=== PATIENT | male | born 2005 | race Caucasian/White ===

== ENCOUNTER 2024-01-22 13:48 | Observation (INO) | payer BC, OTHER ==
--- NOTE | 2024-01-22 14:07 | ED ---
General Adult HPI - General Chief complaint: Urogenital Stated complaint: testicular torsion Time Seen by Provider: 01/22/24 13:58 Source: patient, RN notes reviewed, old records reviewed Mode of arrival: ambulatory Limitations: no limitations - History of Present Illness Initial comments: 18-year-old male with pain to the right testicle and the right side of his scrotum. Patient states the pain has been present for 3 to 4 days. He was seen at urgent care and sent to the emergency department for evaluation and concern for testicular torsion. Patient has an undescended left testicle from . He denies dysuria or hematuria. States the pain is worse with standing. - Related Data Allergies Allergy/AdvReac Type Severity Reaction Status Date / Time No Known Allergies Allergy Verified 01/22/24 13:56 Review of Systems ROS Statement: Those systems with pertinent positive or pertinent negative responses have been documented in the HPI. ROS Other: All systems not noted in ROS Statement are negative. Past Medical History Past Medical History: No Reported History Past Surgical History: No Surgical Hx Reported Smoking Status: Never smoker Past Alcohol Use History: None Reported Past Drug Use History: None Reported General Exam Limitations: no limitations General appearance: alert, in no apparent distress Head exam: Present: atraumatic, normocephalic Eye exam: Present: normal appearance, PERRL ENT exam: Present: normal exam Neck exam: Present: normal inspection. Absent: tenderness Respiratory exam: Present: normal lung sounds bilaterally. Absent: respiratory distress Cardiovascular Exam: Present: regular rate, normal rhythm GI/Abdominal exam: Present: soft. Absent: distended, tenderness exam: Present: testicular tenderness (Right), vertical testicular lie, other (Left hemiscrotum: Absent left testicle. Cremasteric reflex on the right, high riding testicle on the right). Absent: scrotal swelling Neurological exam: Present: alert Psychiatric exam: Present: normal affect, normal mood Skin exam: Present: warm, dry, intact. Absent: cyanosis, diaphoretic Course Vital Signs 01/22/24 13:56 Temperature 98.6 F Pulse Rate 82 Respiratory 18 Rate Blood Pressure 126/74 O2 Sat by Pulse 99 Oximetry - Reevaluation(s) Reevaluation #1: 01/22/24 15:05 Case discussed with urology Dr. Salas at the time I evaluated the ultrasound. Medical Decision Making - Medical Decision Making Was pt. sent in by a medical professional or institution (MANISHA Mead, WELCOME DESK AGENT, urgent care, hospital, or residential...) When possible be specific @ -No Did you speak to anyone other than the patient for history (EMS, parent, family, police, friend...)? What history was obtained from this source @ -No Did you review nursing and triage notes (agree or disagree)? Why? @ -I reviewed and agree with nursing and triage notes Were old charts reviewed (outside hosp., previous admission, EMS record, old EKG, old radiological studies, urgent care reports/EKG's, residential records)? Report findings @ -No old charts were reviewed Differential Diagnosis: Testicular torsion, epididymitis, orchitis EKG interpreted by me (3pts min.). @ -As above X-rays interpreted by me (1pt min.). @ -None done CT interpreted by me (1pt min.). @ -None done U/S interpreted by me (1pt. min.). @ -Ultrasound shows a heterogeneous appearance to the right testicle and absent vascularity within the right testicle. What testing was considered but not performed or refused? (CT, X-rays, U/S, labs)? Why? @ -None What meds were considered but not given or refused? Why? @ -None Did you discuss the management of the patient with other professionals (professionals i.e. MANISHA Mead, WELCOME DESK AGENT, lab, RT, psych nurse, delinquency prevention social worker, jacquard plate maker, teacher, founder and chief executive officer, case mgr)? Give summary @Case discussed with Dr. Salas who is on his way to the emergency department. Was smoking cessation discussed for >3mins.? @ -No Was critical care preformed (if so, how long)? @Yes, 35 minutes Were there social determinants of health that impacted care today? How? (Homelessness, low income, unemployed, alcoholism, drug addiction, transportation, low edu. Level, literacy, decrease access to med. care, shelter, rehab)? @ -No Was there de-escalation of care discussed even if they declined (Discuss DNR or withdrawal of care, Hospice)? DNR status @ -No What co-morbidities impacted this encounter? (DM, HTN, Smoking, COPD, CAD, Ca ncer, CVA, ARF, Chemo, Hep., AIDS, mental health diagnosis, sleep apnea, morbid obesity)? @ -None Was patient admitted / discharged? Hospital course, mention meds given and route, prescriptions, significant lab abnormalities, going to OR and other pertinent info. @ -[18 yo-year-old male with 3 or 4 days of right testicle pain. Patient has a high riding right testicle with absent cremasteric reflex. Ultrasound is ordered immediately with concern for testicular torsion. Upon review of the images there is absent flow in the right testicle, urology is consulted immediately and on his way to the emergency department. Preop laboratory studies ordered results pending. Undiagnosed new problem with uncertain prognosis? @ -No Drug Therapy requiring intensive monitoring for toxicity (Heparin, Nitro, Insulin, Cardizem)? @ -No Were any procedures done? @ -No Diagnosis/symptom? @Testicular torsion Acute, or Chronic, or Acute on Chronic? @ -acute Uncomplicated (without systemic symptoms) or Complicated (systemic symptoms)? @ -complicated Side effects of treatment? @ -No Exacerbation, Progression, or Severe Exacerbation? @ -No Poses a threat to life or bodily function? How? (Chest pain, [place], [place], pneumonia, PE, COPD, DKA, ARF, appy, cholecystitis, CVA, Diverticulitis, Homicidal, Suicidal, threat to staff... and all critical care pts) @ -[Yes, high risk of testicular loss - Lab Data Lab Results 01/22/24 Range/Units 14:24 Urine Color Yellow Urine Appearance Clear (Clear) Urine pH 5.5 (5.0-8.0) Ur Specific Vader 1.022 (1.001-1.035) Urine Protein Negative (Negative) Urine Glucose (UA) Negative (Negative) Urine Ketones Negative (Negative) Urine Blood Trace H (Negative) Urine Nitrite Negative (Negative) Urine Bilirubin Negative (Negative) Urine Urobilinogen <2.0 (<2.0) mg/dL Ur Leukocyte Esterase Negative (Negative) Urine RBC <1 (0-5) /hpf Urine WBC <1 (0-5) /hpf Urine Mucus Occasional H (None) /hpf Critical Care Time Critical Care Time: Yes Total Critical Care Time: 35 Disposition Clinical Impression: Torsion of testis Disposition: ADMITTED IP TO THIS HOSP Condition: Serious Is patient prescribed a controlled substance at d/c from ED?: No Referrals: Jose Eduardo Pinzon MD [Primary Care Provider] - 1-2 days Time of Disposition: 15:10
[2024-01-22 14:36] LABS: Appearance,Urine Clear (Clear); Bilirubin,Urine Negative (Negative); Blood,Urine Trace (Negative); Color,Urine Yellow; Glucose,Urine (UA) Negative (Negative); Ketones,Urine Negative (Negative); Leukocyte Esterase,Urine Negative (Negative); Mucus,Urine Occasional /hpf; Nitrite,Urine Negative (Negative); PH, Urine 5.5 (5.0-8.0); Protein,Urine Negative (Negative); RBC,Urine <1 /hpf (0-5); Specific Gravity,Urine 1.022 (1.001-1.035); Urobilinogen,Urine <2.0 mg/dL (<2.0); WBC,Urine <1 /hpf (0-5)
--- NOTE | 2024-01-22 15:10 | US ---
EXAMINATION TYPE: US scrotum with doppler. DATE OF EXAM: 01/22/2024 COMPARISON: NONE CLINICAL INDICATION: Male, 18 years old with history of pain; Pain x 3 days patient says only has one testicle. TECHNIQUE: Grayscale, color Doppler and spectral Doppler imaging of the scrotum. FINDINGS: EXAM MEASUREMENTS: TESTICLES: Right Testicle: 4.4 x 3.3 x 3.4 cm Left Testicle: absent. EPIDIDYMIS HEAD: Right Epididymis: Not visualized. Left Epididymis: absent Presence of hydroceles: no Presence of varicoceles: no Right testicle is heterogenous no blood flow seen within only around the periphery. No left testicle visualized. IMPRESSION: 1. Heterogenous right testicle. No blood flow identified. Correlate for torsion. Report was called to emergency room physician by Dr. Delgado by telephone at the time of interpretation. [facility], Workstation: [facility], 01/22/2024 3:08 PM
[2024-01-22] MEDS ORDERED: NALOXONE 0.4 MG/ML 1 ML VIAL IV PRN (15:16)
[2024-01-22] MEDS ORDERED: HYDROmorphone 0.5 MG/0.5 ML SYRINGE IVP PRN (15:16)
[2024-01-22] MEDS: SODIUM CHLORIDE 0.9% 1,000 ML IV SCH (15:33)
[2024-01-22 15:41] LABS: Basophils % (A) 0 %; Eosinophils # (A) 0.1 k/uL (0-0.7); Eosinophils % (A) 1 %; HGB 17.6 gm/dL (13.0-17.5); Lymphocytes # (A) 1.5 k/uL (1.0-4.8); Lymphocytes % (A) 11 %; MCH 28.2 pg (25.0-35.0); MCHC 32.7 g/dL (31.0-37.0); MCV 86.4 fL (80.0-100.0); Mean Platelet Volume 7.6; Monocytes # (A) 0.7 k/uL (0-1.0); Monocytes % (A) 5 %; Neutrophils # (A) 11.4 k/uL (1.3-7.7); Neutrophils % (A) 82 %; Platelet Count 316 k/uL (150-450); RBC 6.25 m/uL (4.30-5.90); RDW 12.3 % (11.5-15.5); WBC 13.9 k/uL (4.0-11.0)
[2024-01-22 15:52] LABS: Partial Thromboplastin Time 28.4 sec (22.0-30.0)
[2024-01-22 15:53] LABS: ALT 28 U/L (4-49); African American GFR (CKD) >90 (>60 ml/min/1.73 sqM); Anion Gap 10 mmol/L; Blood Urea Nitrogen 10 mg/dL (9-20); Calcium 9.5 mg/dL (8.4-10.2); Carbon Dioxide 24 mmol/L (22-30); Chloride 105 mmol/L (98-107); Glucose 95 mg/dL (74-99); Non-African American GFR(CKD) >90 (>60 ml/min/1.73 sqM); Sodium 139 mmol/L (137-145); Total Bilirubin 1.8 mg/dL (0.2-1.3)
[2024-01-22] MEDS: SODIUM CHLORIDE 0.9% 1,000 ML IV ONE (16:11)
[2024-01-22] MEDS ORDERED: MIDAZOLAM 2 MG/2 ML VIAL ONE (16:11)
[2024-01-22] MEDS ORDERED: SUCCINYLCHOLINE CHLORIDE 200 MG/10 ML VIAL IV ONE (16:11)
[2024-01-22] MEDS ORDERED: PROPOFOL 10 MG/ML 20 ML VIAL IV ONE (16:11)
[2024-01-22] MEDS ORDERED: HYDROmorphone (PF) 1 MG/ML ONE (16:11)
[2024-01-22] MEDS ORDERED: LIDOCAINE 1% INJ 10MG/ML (20 ML MDV) ONE (16:11)
[2024-01-22] MEDS ORDERED: NEOSTIGMINE 1 MG/ML 10 ML VIAL ONE (16:11)
[2024-01-22] MEDS ORDERED: fentaNYL (PF) 50 MCG/ML 2 ML AMP ONE (16:11)
[2024-01-22] MEDS ORDERED: GLYCOPYRROLATE 0.2 MG/ML 2 ML VIAL ONE (16:11)
[2024-01-22] MEDS ORDERED: ONDANSETRON 4 MG/2 ML VIAL ONE (16:11)
--- NOTE | 2024-01-22 16:11 | P.GSHP ---
History of Present Illness H&P Date: 01/22/24 Chief Complaint: Right testicular pain The patient is a 18-year-old white male who has experienced right testicular pain since January 19, 2024. The pain has varied in severity but worsened today. He presented to the ER and underwent ultrasound, revealing a heterogenous right testicle without blood flow. The patient has a solitary right testicle due to cryptorchidism, for which he states he has never undergone evaluation. - Constitutional Constitutional: Denies chills, Denies fever - Genitourinary (Male) Genitourinary: Denies dysuria, Denies hematuria Past Medical History Past Medical History: No Reported History Past Surgical History: No Surgical Hx Reported Smoking Status: Never smoker Past Alcohol Use History: None Reported Past Drug Use History: None Reported Medications and Allergies Home Medications Medication Instructions Recorded Confirmed Type No Known Home Medications 01/22/24 01/22/24 History Allergies Allergy/AdvReac Type Severity Reaction Status Date / Time No Known Allergies Allergy Verified 01/22/24 15:24 Surgical - Exam Vital Signs Temp Pulse Resp BP Pulse Ox 98.6 F 82 18 126/74 99 01/22/24 13:56 01/22/24 13:56 01/22/24 13:56 01/22/24 13:56 01/22/24 13:56 - General well developed, well nourished, moderate distress - Respiratory normal respiratory effort - Abdomen Abdomen: soft, non tender, no guarding, no rigid, no rebound - Genitourinary Normal phallus, normal urethral meatus. The left testicle cannot be palpated. There are no spermatic cord structures at the left scrotal neck. The right testicle is indurated and tender to palpation. - Psychiatric oriented to time, oriented to person, oriented to place, speech is normal, memory intact Results - Labs 01/22/24 15:27 Abnormal Lab Results - Last 24 Hours (Table) 01/22/24 01/22/24 Range/Units 14:24 15:27 WBC 13.9 H (4.0-11.0) k/uL RBC 6.25 H (4.30-5.90) m/uL Hgb 17.6 H (13.0-17.5) gm/dL Hct 54.0 H (39.0-53.0) % Neutrophils # 11.4 H (1.3-7.7) k/uL Urine Blood Trace H (Negative) Urine Mucus Occasional H (None) /hpf Assessment and Plan (1) Torsion of testis Current Visit: Yes Status: Acute Code(s): N44.00 - TORSION OF TESTIS, UNSPECIFIED SNOMED Code(s): 94785327 Plan: Right scrotal exploration. I had a lengthy discussion with the patient and his mother regarding his condition. Unfortunately, it is anticipated that the testicle will be necrotic and that an orchiectomy will be performed. However, if testicular torsion is confirmed, detorsion will be performed and the testicle will be reevaluated. If it appears viable, and orchiopexy will be performed. The rationale for this approach has been discussed in detail with the patient and his mother. I also reviewed with them potential risks, which include anesthesia, bleeding, and infection.
[2024-01-22 16:24] LABS: AST 36 U/L (17-59); Albumin 4.9 g/dL (3.5-5.0); Alkaline Phosphatase 84 U/L (38-126); Potassium 5.2 mmol/L (3.5-5.1); Total Protein 7.8 g/dL (6.3-8.2)
[2024-01-22] MEDS: BUPIVACAINE (PF) 0.25% 30 ML VIAL SQ ONE (16:52)
--- NOTE | 2024-01-22 17:12 | P.OP ---
Date of Procedure: 01/22/24 Preoperative Diagnosis: Right testicular torsion Postoperative Diagnosis: Same Procedure(s) Performed: Right scrotal exploration, right orchiectomy Anesthesia: OLIVIAA Surgeon: Mook Salas Estimated Blood Loss (ml): 10 IV fluids (ml): 500 Pathology: other (Right testicle) Condition: stable Disposition: PACU Indications for Procedure: The patient is a 18-year-old white male who has experienced right testicular pain since January 19, 2024. The pain has varied in severity but worsened today. He presented to the ER and underwent ultrasound, revealing a heterogenous right testicle without blood flow. The patient has a solitary right testicle due to cryptorchidism, for which he states he has never undergone evaluation. Findings are consistent with testicular torsion, and he has been advised to undergo surgical exploration. Operative Findings: Necrotic right testicle, 360 degree torsion. Description of Procedure: The patient was taken to the operating room and placed in the supine position. Examination under anesthesia was performed, and the left testicle was palpable in the upper left inguinal canal. The external genitalia was prepped and draped sterilely. The scalpel was used to make a transverse right anterior scrotal incision. The dartos fascia was noted to be edematous. The Bovie electrocautery was used to incise the dartos fascia, down to the tunica vaginalis. The tunica vaginalis was opened, and the right testicle was noted to be necrotic. The testicle was torsed 360 degrees. Detorsion was performed, but the testicle was not viable. Therefore, 2-0 Vicryl suture was used to suture ligate the right spermatic cord. The cord was then ligated a second time using the Vicryl suture, prior to dividing the cord and removing the testicle. The right hemiscrotum was inflamed, and thus there were multiple areas of oozing which were controlled with electrocautery. Once hemostasis was attained, the dartos fascia was closed using 3-0 Vicryl suture in a running fashion. The skin was closed using 3-0 chromic suture in a running fashion. 0.25% bupivacaine was injected subcutaneously within the superior aspect of the incision. Dermabond was applied over the incision. All sponge and needle counts were correct. The patient tolerated the procedure well was taken to the recovery in stable condition.
[2024-01-22] MEDS: KETOROLAC 15 MG/ML 1 ML VIAL IVP STA (17:38)
[2024-01-22] MEDS: DEXAMETHASONE SOD PHOSPHATE 4 MG/ML 1 ML VIAL IVP STA (17:40)
[2024-01-22] MEDS: IV FLUID CONTINUATION 1,000 ML IV ONE (17:51)
[2024-01-23 08:19] VITALS: BP 130/69; PULSE 91; RESP 14; TEMP 98.1
--- NOTE | 2024-01-23 08:48 | P.DS ---
Providers Date of admission: 01/22/24 15:17 Attending physician: Mook Salas Primary care physician: [facility] Course: The patient had a right orchiectomy for a torsion. He has a left undescended testis. He did well overnight. We discussed fertility and hormone status. He can be d/cd home a fu with dr Salas next week at which time they will further discuss his status short and custodial Patient Condition at Discharge: Good Plan - Discharge Summary Discharge Rx Participant: No New Discharge Prescriptions: New Ketorolac [Toradol] 10 mg PO Q6HR PRN #10 tab PRN Reason: Pain Discharge Medication List Ketorolac [Toradol] 10 mg PO Q6HR PRN #10 tab 01/22/24 [Rx] Follow up Appointment(s)/Referral(s): Jose Eduardo Pinzon MD [Primary Care Provider] - 1-2 days Mook Salas MD [STAFF PHYSICIAN] - 10 Days Patient Instructions/Handouts: Orchiectomy (DC) Activity/Diet/Wound Care/Special Instructions: Diet as tolerated. No lifting or strenuous activity for 2 weeks. May return to work on January 30, 2024. May shower on January 24, 2024. Discharge Disposition: HOME SELF-CARE
== END 2024-01-23 10:16 | disposition home or self-care (01) ==
LOC: EC 13:48 → 4SSUR 15:17 → INTOOBSV 15:17 → 4SSUR 17:05
PROVIDERS: ADMIT Urology; ATTEND Urology
DX: N44.00 Torsion of testis, unspecified (principal); Q53.10 Unspecified undescended testicle, unilateral; I96 Gangrene, not elsewhere classified
CPT/HCPCS: 99285; 88305; 80053; 85025; 85610; 85730; 81001; 93976; 76870; 54520; G0378; J2250; J0330; J1100; J2710; J0690; J2405; J2003; J3010; J1171; J1885; J2704; J0665; J1596; 93975

== ENCOUNTER 2024-04-02 15:49 | Emergency (ER) | payer BC, OTHER ==
[2024-04-02 16:04] VITALS: RESP 18
--- NOTE | 2024-04-02 16:21 | ED ---
Back Pain HPI - General Chief Complaint: Back Pain/Injury Stated Complaint: L sided abd pain Time Seen by Provider: 04/02/24 16:20 Source: patient, family (mother), RN notes reviewed, old records reviewed Limitations: no limitations - History of Present Illness Initial Comments: 18-year-old male presented to the ER for evaluation of right flank pain. He states this been ongoing for the week and has been progressively worsening. He describes it as a sharp pain that is worse with ambulation. He denies any diarrhea, constipation, urinary complaints, fevers or chills. He does report nausea due to the pain. No vomiting. 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 Patient denies any chest pain or shortness of breath. He has not taken anything for pain at this time. No other complaints. - Related Data Previous Rx's Medication Instructions Recorded Ketorolac [Toradol] 10 mg PO Q6HR PRN #10 tab 01/22/24 Lidocaine 4% Patch 1 patch TOPICAL DAILY #15 patch 04/02/24 Allergies Allergy/AdvReac Type Severity Reaction Status Date / Time No Known Allergies Allergy Verified 01/22/24 15:24 Review of Systems ROS Statement: Those systems with pertinent positive or pertinent negative responses have been documented in the HPI. ROS Other: All systems not noted in ROS Statement are negative. Past Medical History Past Medical History: No Reported History History of Any Multi-Drug Resistant Organisms: None Reported Past Surgical History: No Surgical Hx Reported Additional Past Surgical History / Comment(s): testicular tortion Smoking Status: Never smoker Past Alcohol Use History: None Reported Past Drug Use History: None Reported General Exam Limitations: no limitations General appearance: alert, in no apparent distress Respiratory exam: Present: normal lung sounds bilaterally, chest wall tenderness (Right anterior and lateral ribs. No paradoxical chest wall motions. No overlying skin changes.). Absent: respiratory distress, wheezes, rales, rhonchi, stridor Cardiovascular Exam: Present: regular rate, normal rhythm, normal heart sounds. Absent: systolic murmur, diastolic murmur, rubs, gallop, clicks GI/Abdominal exam: Present: soft, normal bowel sounds. Absent: distended, tenderness, guarding, rebound, rigid Extremities exam: Present: normal inspection, full ROM, normal capillary refill. Absent: tenderness, pedal edema, joint swelling, calf tenderness Back exam: Present: normal inspection, full ROM, CVA tenderness (R) Neurological exam: Present: alert, oriented X3, CN II-XII intact Skin exam: Present: warm, dry, intact, normal color. Absent: rash Course Vital Signs 04/02/24 04/02/24 16:01 18:59 Temperature 98.9 F 98 F Pulse Rate 82 80 Respiratory 18 18 Rate Blood Pressure 144/80 138/76 O2 Sat by Pulse 99 98 Oximetry Medical Decision Making - Medical Decision Making Was pt. sent in by a medical professional or institution (, PA, [employer], urgent care, hospital, or [place] [facility] facility...) When possible be specific @ -No Did you speak to anyone other than the patient for history (EMS, parent, family, police, friend...)? What history was obtained from this source @ -No Did you review nursing and triage notes (agree or disagree)? Why? @ -I reviewed and agree with nursing and triage notes Were old charts reviewed (outside hosp., previous admission, EMS record, old EKG, old radiological studies, urgent care reports/EKG's, [place] [facility] facility records)? Report findings @ -No old charts were reviewed Differential Diagnosis (chest pain, altered mental status, abdominal pain women, abdominal pain men, vaginal bleeding, weakness, fever, dyspnea, syncope, headache, dizziness, GI bleed, back pain, seizure, CVA, palpatations, mental health, musculoskeletal)? @ -Differential Back Pain:Strain, zoster, cauda equina syndrome, epidural abscess, vertebral osteomyelitis, discitis, fracture, subluxation, disc herniation, DJD, spinal stenosis, dissection, AAA, pancreatitis, peptic ulcer disease, pyelonephritis, kidney stone, this is not meant to be an all-inclusive list. EKG interpreted by me (3pts min.). @ -None done X-rays interpreted by me (1pt min.). @ -Right ribs AP chest x-ray negative for acute cardiopulmonary process, rib fractures or displacement. CT interpreted by me (1pt min.). @ -None done U/S interpreted by me (1pt. min.). @ -None done What testing was considered but not performed or refused? (CT, X-rays, U/S, labs)? Why? @ -None What meds were considered but not given or refused? Why? @ -None Did you discuss the management of the patient with other professionals (ann marie cameron i.e. , SONIA, [employer], lab, RT, psych nurse, social services, curator horticultural museum, teacher, donor relations officer, wrapper caser)? Give summary @ -No Was smoking cessation discussed for >3mins.? @ -No Was critical care preformed (if so, how long)? @ -No Were there social determinants of health that impacted care today? How? (Homelessness, low income, unemployed, alcoholism, drug addiction, transportation, low edu. Level, literacy, decrease access to med. care, correction, rehab)? @ -No Was there de-escalation of care discussed even if they declined (Discuss DNR or withdrawal of care, Hospice)? DNR status @ -No What co-morbidities impacted this encounter? (DM, HTN, Smoking, COPD, CAD, Cancer, CVA, ARF, Chemo, Hep., AIDS, mental health diagnosis, sleep apnea, morbid obesity)? @ -None Was patient admitted / discharged? Hospital course, mention meds given and route, prescriptions, significant lab abnormalities, going to OR and other pertinent info. @ -Discharge. 18-year-old male presented to the ER for evaluation of right flank pain x 1 week. Upon examination, patient resting company in exam room no signs of acute distress. Vitals stable. Exam remarkable for tenderness to right anterior lateral ribs. There is no overlying skin changes or paradoxical chest wall motions. Pain is made worse with movement and touch. Laboratory studies obtained unremarkable. Urinalysis unremarkable. Patient received symptomatic control in the ER with IV fluids, Toradol and Zofran. Pain believed to be musculoskeletal in nature as it is reproducible and made worse with movement. Lidocaine patches prescribed. Upon reevaluation, patient resting comfortably exam no signs of acute distress. Results discussed with patient, all questions answered. Patient is stable for discharge. Strict return sonia valle discussed. Patient discharged in stable condition with follow-up to PCP. Patient verbally expressed understanding and agreement with care plan. Case discussed with ED attending, Dr. Kang. Undiagnosed new problem with uncertain prognosis? @ -No Drug Therapy requiring intensive monitoring for toxicity (Heparin, Nitro, Insulin, Cardizem)? @ -No Were any procedures done? @ -No Diagnosis/symptom? @ -Right rib pain Acute, or Chronic, or Acute on Chronic? @ -Acute Uncomplicated (without systemic symptoms) or Complicated (systemic symptoms)? @ -Uncomplicated Side effects of treatment? @ -No Exacerbation, Progression, or Severe Exacerbation? @ -No Poses a threat to life or bodily function? How? (Chest pain, [place], [place], pneumonia, PE, COPD, DKA, ARF, appy, cholecystitis, CVA, Diverticulitis, Homicidal, Suicidal, threat to staff... and all critical care pts) @ -No - Lab Data Result diagrams: 04/02/24 16:33 04/02/24 16:33 Lab Results 04/02/24 04/02/24 04/02/24 Range/Units 16:33 16:33 16:33 WBC 8.1 (4.0-11.0) k/uL RBC 5.69 (4.30-5.90) m/uL Hgb 16.6 (13.0-17.5) gm/dL Hct 49.3 (39.0-53.0) % MCV 86.7 (80.0-100.0) fL MCH 29.2 (25.0-35.0) pg MCHC 33.7 (31.0-37.0) g/dL RDW 13.7 (11.5-15.5) % Plt Count 319 (150-450) k/uL MPV 7.1 Neutrophils % 63 % Lymphocytes % 24 % Monocytes % 5 % Eosinophils % 6 % Basophils % 1 % Neutrophils # 5.1 (1.3-7.7) k/uL Lymphocytes # 2.0 (1.0-4.8) k/uL Monocytes # 0.4 (0-1.0) k/uL Eosinophils # 0.5 (0-0.7) k/uL Basophils # 0.1 (0-0.2) k/uL Sodium 140 (137-145) mmol/L Potassium 4.4 (3.5-5.1) mmol/L Chloride 103 (98-107) mmol/L Carbon Dioxide 26 (22-30) mmol/L Anion Gap 11 mmol/L BUN 12 (9-20) mg/dL Creatinine 0.80 (0.66-1.25) mg/dL Est GFR (CKD-EPI)AfAm >90 (>60 ml/min/1.73 sqM) Est GFR (CKD-EPI)NonAf >90 (>60 ml/min/1.73 sqM) Glucose 90 (74-99) mg/dL Plasma Lactic Acid Colt (0.7-2.0) mmol/L Calcium 9.8 (8.4-10.2) mg/dL Total Bilirubin 0.7 (0.2-1.3) mg/dL AST 29 (17-59) U/L ALT 36 (4-49) U/L Alkaline Phosphatase 105 (38-126) U/L Total Protein 7.3 (6.3-8.2) g/dL Albumin 4.9 (3.5-5.0) g/dL Urine Color Colorless Urine Appearance Clear (Clear) Urine pH 7.0 (5.0-8.0) Ur Specific [place] 1.010 (1.001-1.035) Urine Protein Negative (Negative) Urine Glucose (UA) Negative (Negative) Urine Ketones Negative (Negative) Urine Blood Negative (Negative) Urine Nitrite Negative (Negative) Urine Bilirubin Negative (Negative) Urine Urobilinogen <2.0 (<2.0) mg/dL Ur Leukocyte Esterase Negative (Negative) 04/02/24 Range/Units 16:33 WBC (4.0-11.0) k/uL RBC (4.30-5.90) m/uL Hgb (13.0-17.5) gm/dL Hct (39.0-53.0) % MCV (80.0-100.0) fL MCH (25.0-35.0) pg MCHC (31.0-37.0) g/dL RDW (11.5-15.5) % Plt Count (150-450) k/uL MPV Neutrophils % % Lymphocytes % % Monocytes % % Eosinophils % % Basophils % % Neutrophils # (1.3-7.7) k/uL Lymphocytes # (1.0-4.8) k/uL Monocytes # (0-1.0) k/uL Eosinophils # (0-0.7) k/uL Basophils # (0-0.2) k/uL Sodium (137-145) mmol/L Potassium (3.5-5.1) mmol/L Chloride (98-107) mmol/L Carbon Dioxide (22-30) mmol/L Anion Gap mmol/L BUN (9-20) mg/dL Creatinine (0.66-1.25) mg/dL Est GFR (CKD-EPI)AfAm (>60 ml/min/1.73 sqM) Est GFR (CKD-EPI)NonAf (>60 ml/min/1.73 sqM) Glucose (74-99) mg/dL Plasma Lactic Acid Colt 1.9 (0.7-2.0) mmol/L Calcium (8.4-10.2) mg/dL Total Bilirubin (0.2-1.3) mg/dL AST (17-59) U/L ALT (4-49) U/L Alkaline Phosphatase (38-126) U/L Total Protein (6.3-8.2) g/dL Albumin (3.5-5.0) g/dL Urine Color Urine Appearance (Clear) Urine pH (5.0-8.0) Ur Specific [place] (1.001-1.035) Urine Protein (Negative) Urine Glucose (UA) (Negative) Urine Ketones (Negative) Urine Blood (Negative) Urine Nitrite (Negative) Urine Bilirubin (Negative) Urine Urobilinogen (<2.0) mg/dL Ur Leukocyte Esterase (Negative) - Radiology Data Radiology results: report reviewed, image reviewed Disposition Clinical Impression: Rib pain on right side Disposition: HOME SELF-CARE Condition: Stable Instructions (If sedation given, give patient instructions): Costochondritis (ED) Additional Instructions: I recommend taking [id number] ibuprofen and Tylenol for pain control. Use lidocaine patches 12 hours on and 12 hours off for pain control. Follow-up with PCP. Return to the ER for any new or worsening concerns. Prescriptions: Lidocaine 4% Patch 1 patch TOPICAL DAILY #15 patch Is patient prescribed a controlled substance at d/c from ED?: No Referrals: Jose Eduardo Pinzon MD [Primary Care Provider] - 1-2 days Time of Disposition: 18:20
[2024-04-02] MEDS: SODIUM CHLORIDE 0.9% 1,000 ML IV STA (16:35)
[2024-04-02] MEDS: KETOROLAC 15 MG/ML 1 ML VIAL IVP STA (16:36)
[2024-04-02] MEDS: ONDANSETRON 4 MG/2 ML VIAL IVP STA (16:37)
[2024-04-02 16:46] LABS: Basophils # (A) 0.1 k/uL (0-0.2); Basophils % (A) 1 %; Eosinophils # (A) 0.5 k/uL (0-0.7); Eosinophils % (A) 6 %; HCT 49.3 % (39.0-53.0); HGB 16.6 gm/dL (13.0-17.5); Lymphocytes % (A) 24 %; MCH 29.2 pg (25.0-35.0); MCHC 33.7 g/dL (31.0-37.0); MCV 86.7 fL (80.0-100.0); Mean Platelet Volume 7.1; Monocytes # (A) 0.4 k/uL (0-1.0); Monocytes % (A) 5 %; Neutrophils # (A) 5.1 k/uL (1.3-7.7); Neutrophils % (A) 63 %; Platelet Count 319 k/uL (150-450); RBC 5.69 m/uL (4.30-5.90); RDW 13.7 % (11.5-15.5); WBC 8.1 k/uL (4.0-11.0)
[2024-04-02 16:48] LABS: Appearance,Urine Clear (Clear); Bilirubin,Urine Negative (Negative); Blood,Urine Negative (Negative); Color,Urine Colorless; Glucose,Urine (UA) Negative (Negative); Ketones,Urine Negative (Negative); Leukocyte Esterase,Urine Negative (Negative); Nitrite,Urine Negative (Negative); Protein,Urine Negative (Negative); Urobilinogen,Urine <2.0 mg/dL (<2.0)
[2024-04-02 17:04] LABS: ALT 36 U/L (4-49); AST 29 U/L (17-59); African American GFR (CKD) >90 (>60 ml/min/1.73 sqM); Albumin 4.9 g/dL (3.5-5.0); Alkaline Phosphatase 105 U/L (38-126); Anion Gap 11 mmol/L; Blood Urea Nitrogen 12 mg/dL (9-20); Calcium 9.8 mg/dL (8.4-10.2); Carbon Dioxide 26 mmol/L (22-30); Chloride 103 mmol/L (98-107); Glucose 90 mg/dL (74-99); Non-African American GFR(CKD) >90 (>60 ml/min/1.73 sqM); Potassium 4.4 mmol/L (3.5-5.1); Sodium 140 mmol/L (137-145); Total Bilirubin 0.7 mg/dL (0.2-1.3); Total Protein 7.3 g/dL (6.3-8.2)
--- NOTE | 2024-04-02 17:32 | XR ---
EXAMINATION TYPE: XR ribs RT w pa chest xray, 5 views DATE OF EXAM: 04/02/2024 5:22 PM COMPARISON: None CLINICAL INDICATION: Male, 18 years old with history of rib pain, , FINDINGS: The cardiomediastinal silhouette, aorta, and pulmonary vasculature are within normal limits. Lungs an d pleural spaces are clear. No displaced right rib fracture is seen. IMPRESSION: No acute cardiopulmonary process. No displaced right rib fracture seen. [facility], , 04/02/2024 5:29 PM
[2024-04-02] MEDS ORDERED: LIDOCAINE 4% PATCH TOPICAL ONE (18:19)
[2024-04-02 19:00] VITALS: BP 138/76; PULSE 80; TEMP 98
== END 2024-04-02 19:00 | disposition home or self-care (01) ==
LOC: EC 15:49
DX: R07.81 Pleurodynia (principal)
CPT/HCPCS: 36415; 80053; 83605; 85025; 81003; 71101; 99284; 96374; 96375; 96361; J2405; J1885; 99283